=== PATIENT | female | born 1955 | race African-American/Black ===

== ENCOUNTER 2016-07-13 12:54 | Emergency (ER) | payer OTHER ==
--- NOTE | ~2016-07-13 | CR72 ---
[facility] A Service of [facility] RADIOLOGY TEXT RESULTS PATIENT: DO BOO LOCATION: SED : 55 UNIT #: [id number] AGE: [address]: Khoi Barbosa MD SEX: F ORDER DR: [id number] [place] [id number] E MR#: [id number] Acc #: [id number] NAME: DO BOO : 1955 SEX: F STUDY DATE/TIME: 07/13/2016 12:27 UNIT: SED ROOM: STUDY DESCRIPTION: CR Chest Single View Portable Attending Physician: Khoi Barbosa M.D. Ordering Physician: Khoi Barbosa M.D. Primary Care Physician: Devante Mckinley M.D. MEDICAL IMAGING REPORT This report is preliminary unless electronic signature is present. EXAM Chest portable 07/13/2016 1227 hours HISTORY 60-year-old woman complaining of chest pain since last night. COMPARISON 07/27/2010. FINDINGS Portable upright film is limited by low lung volumes and large body habitus. Heart size is mildly prominent. There is hazy opacity over the right midlung greater than left midlung and both lung bases. Findings suggest the presence of effusions. Underlying lung consolidation is difficult to assess. The aerated apices are clear. Consider followup two-view chest film when possible to reevaluate the lung bases. IMPRESSION Exam is compromised by low lung volumes and large body habitus. There is hazy opacity suggested over the lower half of the hemithoraces right greater than left which could be due to underlying consolidation and/or effusions. This represents a change from 07/27/2010. Suggest follow up upright PA and lateral chest films when possible to evaluate for parenchymal versus pleural changes in the lung bases. STAT * RESULT Dictated by... Cata Romeo M.D. [facility] A Service of [facility] RADIOLOGY TEXT RESULTS PATIENT: DO BOO LOCATION: SED : 55 UNIT #: [id number] AGE: [address]: Khoi Barbosa MD SEX: F ORDER DR: THIS IS AN ELECTRONICALLY VERIFIED REPORT Cata Romeo M.D. at 07/13/2016 2:31 PM ANABELLA/adry TD: 07/13/2016 13:01 JOB #: [id number] MEDICAL IMAGING REPORT
--- NOTE | ~2016-07-13 | CR63 ---
[facility] A Service [facility] RADIOLOGY TEXT RESULTS PATIENT: DO BOO LOCATION: SED : 55 UNIT #: [id number] AGE: [address]: Khoi Barbosa MD SEX: F ORDER DR: [id number] [place] [id number] E MR#: [id number] Acc #: [id number] NAME: DO BOO : 1955 SEX: F STUDY DATE/TIME: 07/13/2016 13:06 UNIT: SED ROOM: STUDY DESCRIPTION: CR Chest 2 View Attending Physician: Khoi Barbosa M.D. Ordering Physician: Khoi Barbosa M.D. Primary Care Physician: Devante Mckinley M.D. MEDICAL IMAGING REPORT This report is preliminary unless electronic signature is present. EXAM Chest, 2 views. DATE OF EXAM 07/13/2016 INDICATIONS 60-year-old female with chest pain since 6 o'clock yesterday evening. No known injury. Hypertension. History of partial thyroidectomy secondary to thyroid malignancy. REPORT 2 view chest. COMPARISON Compared with 07/13/2016. FINDINGS Cardiac silhouette borderline in size and stable. The vascularity is unremarkable. There is mild interstitial prominence in the mid and lower lung zones on the right which may reflect an element of asymmetric atelectasis. No effusion or dense consolidation. No pneumothorax. There is reversed S-shaped thoracolumbar scoliosis with associated secondary degenerative change. IMPRESSION 1. Borderline cardiac size with low lung volumes. Probable asymmetric atelectasis in the right lung. No dense consolidation or effusion. 2. Reverse S-shaped thoracolumbar scoliosis. 3. Pulmonary hyperinflation. Dictated by... [facility] A Service [facility] RADIOLOGY TEXT RESULTS PATIENT: DO BOO LOCATION: SED : 55 UNIT #: [id number] AGE: [address]: Khoi Barbosa MD SEX: F ORDER DR: Khoi L. Yewell, M.D. THIS IS AN ELECTRONICALLY VERIFIED REPORT Khoi Magallanes M.D. at 07/13/2016 5:21 PM MIGUEL/ashvin TD: 07/13/2016 16:59 JOB #: [id number] MEDICAL IMAGING REPORT
--- NOTE | ~2016-07-13 | EKG ---
PATIENT: DO BOO UNIT #: [id number] Ventricular Rate: 92 BPM Atrial Rate: 92 BPM P-R Interval: 152 ms QRS Duration: 78 ms Q-T Interval: 332 ms QTC Calculation(Bezet): 410 ms P Cove: 56 degrees Calculated R Cove: -3 degrees Calculated T Cove: 18 degrees Diagnosis Line: Normal sinus rhythm Diagnosis Line: Inferior infarct , age undetermined Diagnosis Line: Cannot rule out Anterior infarct , age Diagnosis Line: undetermined Diagnosis Line: Abnormal ECG Diagnosis Line: No previous ECGs available Diagnosis Line: Confirmed by SHANNON HULL MD ([id number]) on Diagnosis Line: 07/14/2016 2:52:29 PM INTERPRETING MD: DELLA TY
[2016-07-13 12:31] LABS: BASOPHIL# 0.1 X10e3 (0-0.3); BASOPHIL% 1.4 % (0-2.5); DIFF IND NO; EOSINOPHIL# 0.1 X10e3 (0-0.7); HEMATOCRIT 38.8 % (35.0-45.0); HEMOGLOBIN 12.3 gm/dL (12.0-16.0); LYMPHOCYTE# 2.1 X10e3 (1.0-3.5); LYMPHOCYTE% 37.2 % (17.0-45.0); MEAN CELL VOLUME 82.4 FL (83-96); MEAN CORPUSCULAR HEMOGLOBIN 26.1 PG (28-34); MEAN CORPUSCULAR HGB CONC 31.6 g/dL (30-36); MEAN PLATELET VOLUME 7.8 FL (6.5-11.5); MONOCYTE# 0.5 X10e3 (0-1.0); MONOCYTE% 8.5 % (3.0-12.0); NEUTROPHIL# 2.8 X10e3 (1.5-7.1); NEUTROPHIL% 50.9 % (40-75); PLATELET COUNT 303 X10e3 (140-420); RED BLOOD COUNT 4.71 X10e (3.90-5.30); RED CELL DISTRIBUTION WIDTH 18.5 % (11.0-15.5); WHITE BLOOD COUNT 5.6 X10e3 (4.0-10.5)
[2016-07-13 12:47] LABS: POC - TROPONIN <0.05 ng/mL (<=0.05)
[2016-07-13 12:49] LABS: ALBUMIN SERUM 3.8 g/dL (3.5-5.0); ALKALINE PHOSPHATASE 145 U/L (32-92); ALT (SGPT) 13 U/L (10-40); AST (SGOT) 21 U/L (10-42); BILIRUBIN,TOTAL 0.3 mg/dL (0.2-2.0); BLOOD UREA NITROGEN 11 mg/dL (9-23); BUN/CREATININE RATIO 13.75; CALCIUM SERUM 8.8 mg/dL (8.4-10.2); CARBON DIOXIDE 26 mmol/L (22-31); CHLORIDE 105 mmol/L (100-111); CREATININE SERUM 0.8 mg/dL (0.6-1.4); GLOM FILT RATE Estimated ABOVE60 mL/min (>60); GLUCOSE FASTING 97 mg/dL (70-110); POTASSIUM 3.7 mmol/L (3.5-5.1); PROTEIN TOTAL SERUM 7.8 g/dL (6.0-8.3); SODIUM 138 mmol/L (135-145)
[~2016-07-13 12:54] MED LIST: ACCUPRIL PO; CHANTIX1 MG; CIPRO250 MG PO; DICLOFENAC PO; FLEXERIL PO; HYDROCHLOROTHIA25 MG PO; LAMISIL; LISINOPRIL-HCTZ1 T15 PO; NAPROXEN PO; NORVASC; PHENERGAN25 MG PO; PRILOSEC20 M1 PO; ZOFRANODT PO; ZOLOFT
[2016-07-13 12:55] LABS: BILIRUBIN, DIRECT <0.1 mg/dL (0.0-0.2); BILIRUBIN,INDIRECT 0.2 mg/dL (0.0-0.9)
[2016-07-13 14:24] LABS: POC - CKMB <1.0 ng/mL (0.0-7.9)
[2016-07-13 14:25] LABS: POC - MYOGLOBIN 68.5 ng/mL (0.0-169.0); POC - TROPONIN <0.05 ng/mL (<=0.05)
== END 2016-07-13 15:15 | disposition home or self-care (01) ==
LOC: SED 12:54
PROVIDERS: Emergency Medicine
DX: R07.89 Other chest pain (principal); I10 Essential (primary) hypertension; K21.9 Gastro-esophageal reflux disease without esophagitis; F17.200 Nicotine dependence, unspecified, uncomplicated; Z98.890 Other specified postprocedural states; Z88.2 Allergy status to sulfonamides; Z79.899 Other long term (current) drug therapy
CPT/HCPCS: 36415; 71010; 71020; 80048; 80076; 82553; 83874; 84484; 85025; 93005; 99284

== ENCOUNTER → 2016-09-06 | Outpatient (CLI) | payer OTHER ==
--- NOTE | ~2016-09-06 | ST ---
Unit #: [id number] #: [id number] Patient: DO BOO [id number] [address] [address] [id number] O MR#: [id number] NAME: DO BOO : 1955 SEX: F STUDY DATE/TIME: 09/06/2016 UNIT: CEKG ROOM: STUDY DESCRIPTION: Attending Physician: Devante Mckinley M.D. Referring Physician: Devante Mckinley M.D. Primary Care Physician: Devante Mckinley M.D. CARDIOLOGY REPORT EXAM Stress ECG. INDICATIONS Dyspnea, right shoulder and back pain, obesity, hypertension. SUMMARY The patient exercised on a Keny protocol to maximal effort. The patient completed 2 minutes and 45 seconds of exercise. Heart rate increased from 93-136 (95%) and blood pressure increased from 130/100 to 170/100. Patient did not note any angina or anginal equivalent. The rest and stress ECG demonstrated no diagnostic ST shifts. No significant dysrhythmias, and no heart block. IMPRESSION 1. Severe deconditioning. 2. Normal heart rate and blood pressure responses. 3. Significant resting diastolic hypertension. 4. Normal stress ECG. Dictated by... Leroy Mar M.D. LAWRENCE/candis TD: 09/06/2016 12:27 JOB #: [id number] CARDIOLOGY REPORT Page 1 of 1 X Leroy Mar MD CARDIOLOGY REPORT
== END | disposition home or self-care (01) ==
LOC: CEKG 08-15 08:00
DX: R07.89 Other chest pain (principal); I10 Essential (primary) hypertension
CPT/HCPCS: 93017